=== PATIENT | male | born 1965 | race Caucasian/White ===

== ENCOUNTER 2017-03-20 10:16 | Outpatient (CLI) | payer BC, OTHER ==
--- NOTE | 2017-03-20 14:27 | Diagnostic Imaging Report ---
Indication: PAIN history of cirrhosis and hepatitis C Technique: Mathis-scale and duplex images of the upper abdomen were obtained Comparison: 01/06/2016 Findings: Gallbladder again demonstrates gallstones. There is increased soft tissue occupying the gallbladder fundus which appears vascular. This measures approximately 3.6 x 4.8 cm. Sonographic Frank's sign is negative. Common bile duct measures 5 mm in diameter. No intrahepatic biliary ductal dilatation. Liver demonstrates patchy increased echogenicity and surface nodularity, also previously reported. Portal vein and hepatic veins are patent. Pancreas is unremarkable. The spleen is upper limits of normal in size Left kidney measures 11.2 cm in length. Right kidney measures 10.8 cm length. Both kidneys demonstrate normal echogenicity. There is no hydronephrosis. 12 mm cyst is seen in the right renal interpolar region, also previously demonstrated . Non-aneurysmal abdominal aorta . Impression: 3.6 x 4.8 cm soft tissue mass now filling the gallbladder fundus. This is suspicious for gallbladder malignancy. Surgical consultation is recommended. This finding was phoned to Dr. Jauregui at the time of interpretation Cholelithiasis, also previously described Patchy increased hepatic echogenicity and surface nodularity, also previously described, consistent with fatty change and cirrhosis Spleen is currently upper limits of normal in size, previously reported as borderline enlarged on prior CT and ultrasound
== END 2017-03-20 12:16 | disposition home or self-care (01) ==
LOC: ULS 10:16
DX: K74.69 Other cirrhosis of liver (principal); K80.20 Calculus of gallbladder without cholecystitis without obstruction; Z86.19 Personal history of other infectious and parasitic diseases
CPT/HCPCS: 76700

== ENCOUNTER → 2017-08-28 | Outpatient (CLI) | payer OTHER ==
--- NOTE | 2017-08-28 14:19 | Diagnostic Imaging Report ---
Indication: Hepatitis C cirrhosis. Technique: US ABD Complete Comparison: Abdominal ultrasound 03/20/2017 and 01/06/2016; CT of the abdomen and pelvis 01/12/2016. Findings: Imaged portions of the pancreatic head are grossly unremarkable in appearance. The body and tail are not well seen. Nodular contour of the liver surface compatible cirrhosis. There is increased coarsened hepatic echotexture. There is a vague area of hypoattenuation in the anterior right hepatic lobe which measures approximately 3.3 x 4.5 cm. This is subjacent to the region of the gallbladder fossa and may represent area of focal fatty sparing however this is not seen previously. The possibility of a mass in this region is not entirely excluded..Visualized hepatic veins appear patent. Portal vein appears patent. No appreciable intrahepatic biliary ductal dilatation. Common bile is not dilated. It measures approximately 4 mm in diameter. Patient is status post cholecystectomy. Kidney are symmetric in size. They both demonstrate normal parenchymal thickness and echogenicity. A subcentimeter simple renal cyst is noted within the left kidney. No evidence of urinary tract stones or hydronephrosis bilaterally. Spleen is mildly enlarged, measuring 13 cm in length. Imaged portions of the abdominal aorta and IVC are normal in caliber. No appreciable ascites. IMPRESSION: Cirrhosis with increased hepatic echogenicity possibly related to hepatic steatosis. Vague hypoechoic lesion adjacent to the gallbladder fossa measuring up to 4.5 cm may represent an area of focal fatty sparing versus mass lesion. Further evaluation with four-phase liver protocol CT or MRI recommended. Interval cholecystectomy. Mild splenomegaly. No additional stigmata of portal hypertension identified.
== END | disposition home or self-care (01) ==
LOC: ULS 12:02
DX: R10.9 Unspecified abdominal pain (principal); K74.60 Unspecified cirrhosis of liver; R16.1 Splenomegaly, not elsewhere classified; Z90.49 Acquired absence of other specified parts of digestive tract
CPT/HCPCS: 76700

== ENCOUNTER 2018-01-21 10:00 | Outpatient (CLI) | payer OTHER ==
--- NOTE | 2018-01-21 16:18 | Diagnostic Imaging Report ---
Indication: Abdominal pain, history of cirrhosis of the liver Technique: Mathis-scale and duplex images of the upper abdomen were obtained. Doppler interrogation of the hepatic vessels Comparison: 08/28/2017 Findings: Gallbladder is surgically absent. Common bile duct measures 5 mm in diameter. No intrahepatic biliary ductal dilatation. Liver demonstrates equivocally increased echogenicity. There is slight hepatic surface nodularity. No focal abnormality demonstrated. Portal vein and hepatic veins are patent on Doppler images. Pancreas is unremarkable. Spleen is unremarkable. Left kidney measures 11.5 cm in length. Right kidney measures 11.3 cm length. Both kidneys demonstrate normal echogenicity. There is no hydronephrosis. The right kidney demonstrates a small interpolar region cyst. . Non-aneurysmal abdominal aorta . Previously reported area of hepatic hypoechogenicity is no longer evident. Previously demonstrated splenomegaly is not appreciated currently Impression: Prior cholecystectomy. Negative for dilated ducts Slightly increased hepatic echogenicity, consistent with hepatocellular disease. Slightly nodular liver surface, consistent with cirrhosis, also previously reported Note that previously demonstrated hepatic hypoechoic area thought previously to represent area of focal fatty sparing is not evident on this exam. No focal hepatic lesion seen currently Spleen size is normal currently, previously thought to be enlarged Incidental finding of small right renal cyst
== END 2018-01-21 12:00 | disposition home or self-care (01) ==
LOC: ULS 10:00
DX: K74.69 Other cirrhosis of liver (principal); Z90.49 Acquired absence of other specified parts of digestive tract
CPT/HCPCS: 76700

== ENCOUNTER 2018-10-16 13:08 | Outpatient (CLI) | payer OTHER ==
--- NOTE | 2018-10-16 14:47 | Diagnostic Imaging Report ---
Indication: Abdominal pain Technique: Grayscale and duplex Doppler imaging of the abdomen performed. Comparison: None Findings: The liver shows a slightly nodular surface. Doppler interrogation of the main portal vein shows patency with hepatopedal, monophasic flow. There is no biliary ductal dilatation identified. The CBD measures 2.6 mm. The spleen is unremarkable. Gallbladder is absent. Sonographic Frank's sign was negative per technologist. There demonstrated part of the pancreas, aorta and IVC show no definite abnormalities. Both kidneys appear unremarkable. There is no hydronephrosis. Tiny bilateral cysts are noted within the kidneys. IMPRESSION: Chronic liver disease suspected. Correlate clinically Status post cholecystectomy. Bilateral renal cysts
== END 2018-10-16 15:08 | disposition home or self-care (01) ==
LOC: ULS 13:08
DX: R10.9 Unspecified abdominal pain (principal); Z90.49 Acquired absence of other specified parts of digestive tract; N20.0 Calculus of kidney; K76.9 Liver disease, unspecified; Z86.19 Personal history of other infectious and parasitic diseases
CPT/HCPCS: 76700

== ENCOUNTER 2019-01-20 15:27 | Emergency (ER) | payer OTHER ==
[~2019-01-20] VITALS: Ht 177.8 cm; Wt 97.5 kg
[2019-01-20] MEDS ORDERED: LORazepam Inj 2mg/ml 1ml IV ONE (15:45)
--- NOTE | 2019-01-20 16:26 | NUR ---
ED Nurse Note: pt arrives from home via [facility] with c/o left chest pain that radiates down left arm. relates started unprovoked. no dyspnea/n/v. pt tolerates iv and lab draw well. front desk monitor in use.
--- NOTE | 2019-01-20 16:37 | Diagnostic Imaging Report ---
Indication: Chest pain Technique: One view of the chest Comparison: none Findings: There is atelectasis or scarring in the left lung base. Lungs pleural spaces are otherwise clear. The heart size is normal Impression: No acute process Left basilar atelectasis or scarring
[2019-01-20 16:45] VITALS: BP 151/69
[2019-01-20 16:47] LABS: BASOPHILS % (AUTO) 1.5 % (0.0-2.0); EOSINOPHILS % (AUTO) 1.6 % (0.0-3.0); HEMATOCRIT 40.2 % (42.0-52.0); HEMOGLOBIN 13.7 G/DL (14.2-18.0); LYMPHOCYTES % (AUTO) 25.3 % (20.0-45.0); MEAN CORPUSCULAR VOLUME 82 FL (80-99); MONOCYTES % (AUTO) 8.3 % (1.0-10.0); NEUTROPHILS % (AUTO) 63.3 % (45.0-75.0); PLATELET COUNT 201 K/UL (150-450); RED BLOOD COUNT 4.91 M/UL (4.70-6.10); RED CELL DISTRIBUTION WIDTH 10.2 % (11.6-14.8); WHITE BLOOD COUNT 7.3 K/UL (4.8-10.8)
[2019-01-20 17:08] LABS: ANION GAP 11 mmol/L (5-15); BLOOD UREA NITROGEN 13 mg/dL (7-18); CALCIUM 9.6 MG/DL (8.5-10.1); CARBON DIOXIDE 28 MMOL/L (21-32); CHLORIDE 103 MMOL/L (98-107); CREATININE 1.6 MG/DL (0.55-1.30); POTASSIUM 3.4 MMOL/L (3.5-5.1); SODIUM 142 MMOL/L (136-145)
--- NOTE | 2019-01-20 17:25 | Emergency Room Report ---
History of Present Illness General Chief Complaint: Chest Pain Source: Patient, EMS Present Illness HPI 53-year-old male presents ED for evaluation. Brought in by EMS complaining of chest pain. States chest pain started today when walking. Pressure-like, left- sided, 5 out of 10, radiating to the left arm. Given aspirin and nitro by EMS. States it did not help. Denies shortness of breath. Denies drug use. States that he does have history of anxiety and sometimes a presents in a similar fashion. No other aggravating relieving factors. Denies any other associated symptoms Allergies: Coded Allergies: PENICILLINS (Unverified Allergy, Unknown, 01/20/19) Patient History Past Medical History: HTN, psych hx, HIV Past Surgical History: none Pertinent Family History: none Social History: Denies: smoking, alcohol use, drug use Immunizations: UTD Reviewed Nursing Documentation: PMH: Agreed; PSxH: Agreed Nursing Documentation-PMH Past Medical History: No History, Except For Hx Hypertension: Yes Review of Systems All Other Systems: negative except mentioned in HPI Physical Exam Vital Signs Date Time Temp Pulse Resp B/P (MAP) Pulse Ox O2 Delivery O2 Flow Rate FiO2 01/20/19 15:23 97.5 75 16 111/64 (80) 97 01/20/19 16:29 Room Air Sp02 EP Interpretation: reviewed, normal General Appearance: no apparent distress, alert, GCS 15, non-toxic Head: normocephalic, atraumatic Eyes: bilateral eye normal inspection, bilateral eye PERRL ENT: hearing grossly normal, normal pharynx, no angioedema, normal voice Neck: full range of motion, supple/symm/no masses Respiratory: chest non-tender, lungs clear, normal breath sounds, speaking full sentences Cardiovascular #1: regular rate, rhythm, no edema Cardiovascular #2: 2+ carotid (R), 2+ carotid (L), 2+ radial (R), 2+ radial (L) , 2+ dorsalis pedis (R), 2+ dorsalis pedis (L) Gastrointestinal: normal bowel sounds, non tender, soft, non-distended, no guarding, no rebound Rectal: deferred Genitourinary: normal inspection, no CVA tenderness Musculoskeletal: back normal, gait/station normal, normal range of motion, non- tender Neurologic: alert, oriented x3, responsive, motor strength/tone normal, sensory intact, speech normal Psychiatric: judgement/insight normal, memory normal, mood/affect normal, no suicidal/homicidal ideation Reflexes: 3+ bicep (R), 3+ bicep (L), 3+ tricep (R), 3+ tricep (L), 3+ knee (R) , 3+ knee (L) Lymphatic: no adenopathy Medical Decision Making Diagnostic Impression: Primary Impression: Chest pain Qualified Codes: R07.9 - Chest pain, unspecified Additional Impression: Anxiety ER Course Hospital Course 53-year-old M presents ED complaining of chest pain Differential diagnoses include: Rib fracture, PA/unstable angina, contusion, muscle strain Clinical course Patient placed on stretcher. After initial history and physical I ordered labs , EKG, chest x-ray, ativan. labs reviewed- all electrolytes normal, troponins negative, no leukocytosis, hemoglobin/hematocrit stable EKG - NSr, no acute ischemic changes interpreted by me Chest x-ray-no cardiomegaly, no rib fracture, no pneumothorax, no acute process Spoke to patient's PMD: Nasir FLORES who works at Dr Jauregui's office across the street. He knows this patient well. States that patient had a stress test last year which was negative. Given negative work-up he believes patient can be safely discharged to home. Discussed this with the patient. Given symptoms improving with Ativan I believe pain could be anxiety. Patient states he also takes Adderall. Safe for discharge for close outpatient follow-up I. I feel this is a highly complex case requiring extensive working including EKG/Rhythm strip, Xray/CT/US, Blood/urine lab work, repeat exams while in ED, and administration of strong opiates/narcotics for pain control, admission to hospital or close patient follow up. Diagnosis - chest pain, anxiety Stable and discharged to home. Instructed to followup with PMD. Return to ED if symptoms recur or worsen Labs Test 01/20/19 16:15 White Blood Count 7.3 K/UL (4.8-10.8) Red Blood Count 4.91 M/UL (4.70-6.10) Hemoglobin 13.7 G/DL (14.2-18.0) Hematocrit 40.2 % (42.0-52.0) Mean Corpuscular Volume 82 FL (80-99) Mean Corpuscular Hemoglobin 27.9 PG (27.0-31.0) Mean Corpuscular Hemoglobin Concent 34.1 G/DL (32.0-36.0) Red Cell Distribution Width 10.2 % (11.6-14.8) Platelet Count 201 K/UL (150-450) Mean Platelet Volume 6.2 FL (6.5-10.1) Neutrophils (%) (Auto) 63.3 % (45.0-75.0) Lymphocytes (%) (Auto) 25.3 % (20.0-45.0) Monocytes (%) (Auto) 8.3 % (1.0-10.0) Eosinophils (%) (Auto) 1.6 % (0.0-3.0) Basophils (%) (Auto) 1.5 % (0.0-2.0) Sodium Level 142 MMOL/L (136-145) Potassium Level 3.4 MMOL/L (3.5-5.1) Chloride Level 103 MMOL/L (98-107) Carbon Dioxide Level 28 MMOL/L (21-32) Anion Gap 11 mmol/L (5-15) Blood Urea Nitrogen 13 mg/dL (7-18) Creatinine 1.6 MG/DL (0.55-1.30) Estimat Glomerular Filtration Rate 45.6 mL/min (>60) Glucose Level 118 MG/DL (74-106) Calcium Level 9.6 MG/DL (8.5-10.1) Total Bilirubin 0.3 MG/DL (0.2-1.0) Aspartate Amino Transf (AST/SGOT) 11 U/L (15-37) Alanine Aminotransferase (ALT/SGPT) 26 U/L (12-78) Alkaline Phosphatase 130 U/L (46-116) Total Creatine Kinase 108 U/L (26-308) Creatine Kinase MB 1.2 NG/ML (0.0-3.6) Creatine Kinase MB Relative Index 1.1 Troponin I 0.000 ng/mL (0.000-0.056) Pro-B-Type Natriuretic Peptide 22 pg/mL (0-125) Total Protein 8.5 G/DL (6.4-8.2) Albumin 4.2 G/DL (3.4-5.0) Globulin 4.3 g/dL EKG Diagnostic Results Rate: normal Rhythm: NSR ST Segments: no acute changes ASA given to the pt in ED: No Rhythm Strip Diag. Results EP Interpretation: yes Rhythm: NSR, no PVC's, no ectopy Chest X-Ray Diagnostic Results Chest X-Ray Diagnostic Results : Chest X-Ray Ordered: Yes # of Views/Limited/Complete: 1 View Indication: Chest Pain EP Interpretation: Yes Interpretation: no consolidation, no effusion, no pneumothorax, no acute cardiopulmonary disease Impression: No acute disease Electronically Signed by: Electronically signed by Paddy Scott MD Last Vital Signs Date Time Temp Pulse Resp B/P (MAP) Pulse Ox O2 Delivery O2 Flow Rate FiO2 01/20/19 16:29 75 16 Room Air 01/20/19 15:23 97.5 111/64 (80) 97 Status: improved Disposition: HOME, SELF-CARE Condition: Stable Referrals: NON PHYSICIAN (PCP) Paddy Scott MD Jan 20, 2019 17:25
[2019-01-20 17:27] LABS: ALANINE AMINOTRANSFERASE 26 U/L (12-78); ALBUMIN 4.2 G/DL (3.4-5.0); ALKALINE PHOSPHATASE 130 U/L (46-116); ASPARTATE AMINO TRANSFERASE 11 U/L (15-37); BILIRUBIN,TOTAL 0.3 MG/DL (0.2-1.0); CKMB 1.2 NG/ML (0.0-3.6); CREATINE KINASE 108 U/L (26-308)
[2019-01-20] MEDS ORDERED: FISH OIL CAP1000 MG ORAL (17:41)
[2019-01-20] MEDS ORDERED: PREZISTA600 MG ORAL (17:41)
[2019-01-20] MEDS ORDERED: LAMICTAL150 MG ORAL (17:41)
[2019-01-20] MEDS ORDERED: [UNRECOGNIZED DRUG - OTHER] PO (17:41)
[2019-01-20] MEDS ORDERED: ASPIR 8181 MG ORAL (17:41)
[2019-01-20] MEDS ORDERED: RISPERDAL2 MG ORAL (17:41)
[2019-01-20] MEDS ORDERED: VENLAFAXINE HCL25 MG ORAL (17:41)
[2019-01-20] MEDS ORDERED: AMLODIPINE BESY10 MG ORAL (17:41)
[2019-01-20] MEDS ORDERED: descovy PO (17:41)
[2019-01-20] MEDS ORDERED: PRAVACHOL20 MG ORAL (17:41)
[2019-01-20 18:25] VITALS: BP 137/94
--- NOTE | 2019-01-20 18:25 | NUR ---
ER DISCHARGE NOTE: Patient is cleared to be discharged per ERMD, pt is aox4, on room air, with stable vital signs. pt was given dc instructions, pt was able to verbalize understanding, pt id band and iv site removed without complications. pt is able to ambulate with steady gait. pt took all belongings.
== END 2019-01-20 18:28 | disposition home or self-care (01) ==
LOC: EDBD 15:27 → EMR 15:49
DX: R07.9 Chest pain, unspecified (principal); F41.9 Anxiety disorder, unspecified; I10 Essential (primary) hypertension; B20 Human immunodeficiency virus [HIV] disease; Z88.0 Allergy status to penicillin
CPT/HCPCS: 71045; 80053; 82550; 82553; 83880; 84484; 85025; 93005; 96374; 99284